=== PATIENT | male | born 2005 | race Two or more races ===

== ENCOUNTER 2025-02-13 16:19 | Emergency (ER) | payer OTHER ==
[~2025-02-13] VITALS: Ht 180.3 cm; Wt 113.1 kg
[~2025-02-13 16:19] MED LIST: OXYC1TAB23 PO
[2025-02-13] MEDS: NS (Normal Saline) 0.9% 1,000 ML IV ONE (17:28)
[2025-02-13] MEDS: ONDANSETRON 4MG 2ML VIAL IV ONE (17:28)
[2025-02-13 17:29] LABS: BASO # 0.0 10^3/uL (0.0-0.2); BASO % 0.5 % (0.0-1.0); EOS # 0.1 10^3/uL (0.0-0.5); EOS % 1.1 % (0.0-3.0); LYMPH # 2.5 10^3/uL (1.5-5.0); LYMPH % 45.4 % (24.0-44.0); MONO # 0.4 10^3/uL (0.0-0.8); MONO % 7.9 % (2.0-8.0); NEUTROPHILS # 2.5 10^3/uL (1.5-8.5); NEUTROPHILS % 44.9 % (36.0-66.0); PLATELET COUNT, AUTOMATED 314 10^3/uL (150-450)
[2025-02-13 18:12] LABS: ALT/SGPT 29.0 U/L (7.0-40); AST/SGOT 25.0 U/L (<34)
[2025-02-13] MEDS ORDERED: ONDA-282 PO (19:12)
[2025-02-13 19:15] VITALS: BP 162/88; TEMP 98.2; O2SAT 100
== END 2025-02-13 19:31 | disposition home or self-care (01) ==
LOC: M ED 16:19
DX: R11.2 Nausea with vomiting, unspecified (principal); Z79.83 Long term (current) use of bisphosphonates
CPT/HCPCS: 80047; 80076; 83690; 85025; 96374; 99284; J2405